=== PATIENT | male | born 1960 | race African-American/Black ===

== ENCOUNTER 2019-11-30 11:49 | Emergency (ER) | payer MEDICAID ==
[~2019-11-30] VITALS: Ht 175.3 cm; Wt 49.9 kg
[~2019-11-30 11:49] MED LIST: MAPAP500 M2 PO; MELOXICAM15 MG PO; NORCO 5/3251 TAB ORAL
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
[2019-11-30] MEDS ORDERED: HYDROcodone/Acetamin 5/325 tab ORAL ONE (14:15)
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
[2019-11-30] MEDS ORDERED: TYLENOL EXTRA500 MG ORAL (17:40)
[2019-11-30 18:06] VITALS: BP 105/59
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
== END 2019-11-30 18:00 | disposition home or self-care (01) ==
LOC: EDBD 11:49 → EMR 14:53
DX: M54.2 Cervicalgia (principal); M54.5 Low back pain; M25.561 Pain in right knee; M25.551 Pain in right hip; G80.9 Cerebral palsy, unspecified; Z88.0 Allergy status to penicillin; B20 Human immunodeficiency virus [HIV] disease; G40.909 Epilepsy, unspecified, not intractable, without status epilepticus; M47.816 Spondylosis without myelopathy or radiculopathy, lumbar region
CPT/HCPCS: 72125; 72131; 73552; 73562; 73700; Z7502; 99284